=== PATIENT | male | born 1955 | race Caucasian/White ===

== ENCOUNTER 2020-09-07 09:01 | Day surgery (SDC) | payer MEDICARE, OTHER, SELFPAY ==
[2020-09-07 09:10] VITALS: BP 173/93; PULSE 93; RESP 20; TEMP 36.3; O2SAT 95
[2020-09-07] MEDS: Tropicam./Phenyleph. (1/2.5%) 5 ML BTL OD ×3 (09:43→09:51)
--- NOTE | 2020-09-07 10:55 | W.PM.DSUDISC ---
Discharge Plan Disposition Patient Disposition: HOME Condition: Good Discharge Details Reason For Visit: OD Attending Provider: Lang Lujan Primary Care Provider: Joseph Sue Home Meds and New Rx's Prescriptions: No Action glucagon (human recombinant) 1 mg Kit 1 mg IM ONCE RF: 0 carvedilol [Coreg] 25 mg Tablet 50 mg PO BID RF: 0 potassium chloride [Klor-Con 10] 10 mEq Tablet Extended Release 10 meq PO DAILY RF: 0 omeprazole 40 mg Capsule,Delayed Release(Dr/Ec) 40 mg PO DAILY RF: 0 nystatin 100,000 unit/gram Cream 1 applic TOPICAL BID PRN PRNRF: 0 lisinopril 30 mg Tablet 30 mg PO DAILY RF: 0 allopurinol 300 mg Tablet 300 mg PO DAILY RF: 0 hydralazine 50 mg Tablet 50 mg PO TID RF: 0 metformin 1,000 mg Tablet Extended Release 24hr 1,000 mg PO DAILY RF: 0 calcium carbonate-vitamin D3 [Calcium 500 + D] 500 mg(1,250mg) -200 unit Tablet 1 tab PO BID RF: 0 zolpidem 12.5 mg Tablet,Ext Release Multiphase 12.5 mg PO QHS PRNRF: 0 Victoza 2-[place] 0.6 mg/0.1 mL (18 mg/3 mL) Pen Injector 1.8 mg SUBCUT Q24H RF: 0 insulin glargine U-300 conc 300 unit/mL (1.5 mL) Insulin Pen 62 unit SUBCUT BID RF: 0 insulin degludec-liraglutide 100 unit-3.6 mg /mL (3 mL) Insulin Pen See Rx Instructions .ROUTE .COMPLEX RF: 0 simvastatin 20 mg Tablet 20 mg PO QPM RF: 0 Discharge Instructions Stand Alone Forms: Post-op Topical Cataract, Hank Wareey (DSU) Discharge Orders Discharge Orders: Discharge Order (Routine); Ordered 09/07/20 Ordered By: Lang Lujan DS: Diagnosis Discharge Diagnosis (1) Posterior subcapsular age-related cataract, right eye: Status: Resolved (2) Nuclear sclerotic cataract of right eye: Status: Resolved (3) Cortical cataract of right eye: Status: Resolved
[2020-09-07] MEDS: Lidocaine 2% Jelly 6 ML SYR (11:00)
[2020-09-07] MEDS: Tetracaine 0.5% 4 ML BTL OD (11:00)
[2020-09-07] MEDS: Lidocaine 1% Pres-Free 5 ML VIAL (11:05)
[2020-09-07] MEDS: Balanced Salt Soln.-PLUS 500 ML BAG (11:05)
[2020-09-07] MEDS: Povidone-Iodine Ophth 30 ML BTL (11:08)
[2020-09-07] MEDS: Moxifloxacin-PF 1 MG/ML VIAL (11:24)
--- NOTE | 2020-09-07 11:31 | W.PM.OP ---
Date of service: 09/07/20 Time of Service: 11:32 Operative Note Operative Note DATE OF PROCEDURE: 09/07/20 PRE-OP DIAGNOSIS: Nuclear/cortical/posterior subcapsular cataract, right eye POST-OP DIAGNOSIS: same PROCEDURE: Cataract extraction using phacoemulsification with intraocular lens implant, right eye SURGEON: Lang Lujan ANESTHESIA: MAC and local (sub-tenon's anesthetic infiltration) ESTIMATED BLOOD LOSS: 0 PATHOLOGY: none sent COMPLICATIONS: None Patient was transported to: same day Patient's condition: stable Implants: [employer] / [employer] Tecnis ZCB00 intraocular lens Indications: Progressive decreased vision due to cataract, right eye Procedure Description: CATARACT SURGERY OPERATIVE REPORT PREOPERATIVE DIAGNOSIS: Nuclear/cortical/posterior subcapsular cataract, right eye POSTOPERATIVE DIAGNOSIS: Same OPERATION: Cataract extraction using phacoemulsification with posterior chamber intraocular lens implant, right eye. IOL: IOL Customer Engagement Specialist/Model: [employer] Vision / AZAEL Tecnis ZCB00 IOL Power: + 19.0 diopters IOL Serial Number: [id number] Optic Diameter: 6.0mm Haptic/Overall Diameter: 13.0mm PHACO INFO: Ubaldo [employer] Vision System with OZil and Active Fluidics Cumulative Dispersed Energy (CDE): 5.99 seconds SURGEON: Lang Lujan MD, JOE ANESTHESIA: Monitored Anesthesia Care (MAC), with local sub-tenon's anesthetic infiltration COMPLICATIONS: None SPECIMENS: None INDICATIONS FOR PROCEDURE: The patient is a 65-year-old gentleman with history of diminished visual acuity in the right eyes secondary to the development of nuclear/cortical/posterior subcapsular cataract. The option of cataract surgery was offered to the patient and he felt he was symptomatic enough that he wished to proceed. PROCEDURE: The correct surgical eye was identified and marked as the right eye and the pupil was dilated in the preoperative area using mydriatics and cycloplegics. Dilated pupil size was 6.5 mm no sedation was given. The patient was brought to the operating room where cardiopulmonary monitoring was instituted and surgical time-out was performed, confirming the correct operative eye and IOL power. Topical anesthesia was administered and ophthalmic povidone-iodine 5% was instilled into the conjunctival fornices. Lidocaine gel was applied to the cornea and the severo-ocular area was prepped with Betadine 10% solution and draped in the usual sterile fashion for intraocular surgery, including an aperture drape. A Tegaderm transparent film dressing was cut in half and used to cover the lashes and lid margins. Care was taken to sequester the lashes and lid margins under the Tegaderm dressing. A lid speculum was placed between the lids of the operative eye and the Seymour-Leisa operating microscope was maneuvered into position. Catalino scissors were then used to make a conjunctival buttonhole approximately 6mm posterior to the limbus in the inferonasal quadrant. Blunt dissection was carried out to expose bare sclera, and a blunt-tipped sub-tenon?s anesthesia cannula was introduced and passed posteriorly along the globe where non-preserved plain lidocaine was injected into posterior sub-Tenon?s space. A sideport knife was used to make a paracentesis port inferiortemporally. Intraocular phenylephrine/lidocaine was injected into the anterior chamber. The anterior chamber was then filled with Healon Pro. A 2.4mm keratome knife was used to create a half-thickness groove at the limbus and then to construct a three-plane near-clear corneal tunnel extending 2.0mm into clear cornea in the superiortemporal position. . A flap was raised on the anterior capsule and capsulorhexis forceps were used to complete a continuous curvilinear capsulorhexis of 5.0 mm. Balanced salt solution was then used to perform cortical cleaving hydrodissection and nuclear hydrodelineation until the lens could be freely rotated within the capsular bag. The lens nucleus was then disassembled and removed within the capsular bag and iris plane using phacoemulsification. Residual cortical material was removed using the I/A handpiece. The posterior capsule was carefully polished to remove as much residual lens epithelial cells as safely possible. The capsular bag was then inflated and the anterior chamber deepened with viscoelastic. The lens implant described above was inserted into the capsular bag using the AZAEL [place] Injector. A Kuglen hook was used to dial the IOL into position. Residual viscoelastic was then removed first from posterior to the IOL, then from the anterior chamber using the I/A handpiece. The lens implant was noted to center nicely within the capsular bag. The incisions were stromally hydrated, and the anterior chamber was reformed using BSS. Then 0.5cc of moxifloxacin 1.0mg/ml were injected into the capsular bag and anterior chamber. The incisions were checked with a Weck spear and found to be secure. Several drops of ophthalmic povidone-iodine 5% were then applied to the eye followed by two drops of Imprimis combination prednisolone/moxifloxacin/nepafenac solution. The drapes were removed and a clear plastic protective eye shield was placed over the eye. The patient was then returned to [facility] in stable condition.
== END 2020-09-07 12:00 | disposition home or self-care (01) ==
PROVIDERS: PCP Internal Medicine; Visit Provider Ophthalmology
PROC: (CPT 66984; principal; 2020-09-07 12:30)
DX: H25.041 Posterior subcapsular polar age-related cataract, right eye (principal); I10 Essential (primary) hypertension; K21.9 Gastro-esophageal reflux disease without esophagitis; E11.9 Type 2 diabetes mellitus without complications
CPT/HCPCS: 66984; V2632

== ENCOUNTER 2020-09-21 06:43 | Day surgery (SDC) | payer MEDICARE, OTHER, SELFPAY ==
[2020-09-21 06:45] VITALS: BP 158/71; PULSE 73; RESP 16; TEMP 36.4; O2SAT 97
[2020-09-21] MEDS: Tropicam./Phenyleph. (1/2.5%) 5 ML BTL OS ×3 (07:07→07:26)
--- NOTE | 2020-09-21 08:10 | W.PM.DSUDISC ---
Discharge Plan Disposition Patient Disposition: HOME Condition: Good Discharge Details Attending Provider: Lang Lujan Primary Care Provider: Joseph Sue Home Meds and New Rx's Prescriptions: No Action glucagon (human recombinant) 1 mg Kit 1 mg IM ONCE RF: 0 carvedilol [Coreg] 25 mg Tablet 50 mg PO BID RF: 0 potassium chloride [Klor-Con 10] 10 mEq Tablet Extended Release 10 meq PO DAILY RF: 0 omeprazole 40 mg Capsule,Delayed Release(Dr/Ec) 40 mg PO DAILY RF: 0 nystatin 100,000 unit/gram Cream 1 applic TOPICAL BID PRN PRNRF: 0 lisinopril 30 mg Tablet 30 mg PO DAILY RF: 0 allopurinol 300 mg Tablet 300 mg PO DAILY RF: 0 hydralazine 50 mg Tablet 50 mg PO TID RF: 0 metformin 1,000 mg Tablet Extended Release 24hr 1,000 mg PO DAILY RF: 0 calcium carbonate-vitamin D3 [Calcium 500 + D] 500 mg(1,250mg) -200 unit Tablet 1 tab PO BID RF: 0 zolpidem 12.5 mg Tablet,Ext Release Multiphase 12.5 mg PO QHS PRNRF: 0 Victoza 2-[place] 0.6 mg/0.1 mL (18 mg/3 mL) Pen Injector 1.8 mg SUBCUT Q24H RF: 0 insulin glargine U-300 conc 300 unit/mL (1.5 mL) Insulin Pen 62 unit SUBCUT BID RF: 0 insulin degludec-liraglutide 100 unit-3.6 mg /mL (3 mL) Insulin Pen See Rx Instructions .ROUTE .COMPLEX RF: 0 simvastatin 20 mg Tablet 20 mg PO QPM RF: 0 Discharge Instructions Stand Alone Forms: Post-op Topical Cataract, Press Ganey (DSU) Discharge Orders Discharge Orders: Discharge Order (Routine); Ordered 09/21/20 Ordered By: Lang Lujan DS: Diagnosis Discharge Diagnosis (1) Posterior subcapsular age-related cataract of left eye: Status: Resolved (2) Nuclear sclerotic cataract of left eye: Status: Resolved (3) Cortical cataract of left eye: Status: Resolved
[2020-09-21] MEDS: Tetracaine 0.5% 4 ML BTL OS (08:26)
[2020-09-21] MEDS: Balanced Salt Soln.-PLUS 500 ML BAG (08:26)
[2020-09-21] MEDS: Lidocaine 1% Pres-Free 5 ML VIAL (08:27)
[2020-09-21] MEDS: Moxifloxacin-PF 1 MG/ML VIAL (08:28)
[2020-09-21] MEDS: Lidocaine 2% Jelly 6 ML SYR (08:28)
[2020-09-21] MEDS: Povidone-Iodine Ophth 30 ML BTL (08:29)
[2020-09-21] MEDS: Duovisc Viscoelastic System EACH 1 EACH (08:30)
--- NOTE | 2020-09-21 08:50 | ROE_ITS ---
Date of service: 09/21/20 Time of Service: 08:51 Operative Note Operative Note DATE OF PROCEDURE: 09/21/20 PRE-OP DIAGNOSIS: Nuclear/cortical/posterior subcapsular cataract, left eye POST-OP DIAGNOSIS: same PROCEDURE: Cataract extraction using phacoemulsification with intraocular lens implant, left eye SURGEON: Lang Lujan ANESTHESIA: MAC and local (sub-tenon's anesthetic infiltration) PATHOLOGY: none sent COMPLICATIONS: None Patient was transported to: same day Patient's condition: stable Implants: [employer] / [employer] Tecnis ZCB00 Indications: Progressive decreased vision due to cataract, left eye Procedure Description: CATARACT SURGERY OPERATIVE REPORT PREOPERATIVE DIAGNOSIS: Nuclear/cortical/posterior subcapsular cataract, left eye POSTOPERATIVE DIAGNOSIS: Same OPERATION: Cataract extraction using phacoemulsification with posterior chamber intraocular lens implant, left eye. IOL: IOL News Technical Director/Model: J[employer]J Vision / AZAEL Tecnis ZCB00 IOL Power: +19.5 diopters IOL Serial Number: [id number] Optic Diameter: 6.0mm Haptic/Overall Diameter: 13.0mm PHACO INFO: Ubaldo [employer] Vision System with OZil and Active Fluidics Cumulative Dispersed Energy (CDE): 2.86 seconds SURGEON: Lang Lujan MD, JOE ANESTHESIA: Monitored Anesthesia Care (MAC), with local sub-tenon's anesthetic infiltration COMPLICATIONS: None SPECIMENS: None INDICATIONS FOR PROCEDURE: The patient is a 65-year-old gentleman with history of diminished visual acuity in his left eye secondary to development of nuclear/cortical/posterior subcapsular cataract. The option of cataract surgery was offered to the patient and he wished to proceed. He has already undergone cataract surgery in the right eye and is doing well postoperatively. PROCEDURE: The correct surgical eye was identified and marked as the left eye and the pupil was dilated in the preoperative area using mydriatics and cycloplegics. The dilated pupil size was 8.0 mm. Oral sedation was administered in the form of an Imprimis MKO Melt (midazolam 3mg/ketamine 25mg/ondansetron 2mg). The patient was brought to the operating room where cardiopulmonary monitoring was instituted and surgical time-out was performed, confirming the correct operative eye and IOL power. Topical anesthesia was administered and ophthalmic povidone-iodine 5% was instilled into the conjunctival fornices. Lidocaine gel was applied to the cornea and the severo-ocular area was prepped with Betadine 10% solution and draped in the usual sterile fashion for intraocular surgery, including an aperture drape. A Tegaderm transparent film dressing was cut in half and used to cover the lashes and lid margins. Care was taken to sequester the lashes and lid margins under the Tegaderm dressing. A lid speculum was placed between the lids of the operative eye and the Seymour-Leisa operating microscope was maneuvered into position. Catalino scissors were then used to make a conjunctival buttonhole approximately 6mm posterior to the limbus in the inferonasal quadrant. Blunt dissection was carried out to expose bare sclera, and a blunt-tipped sub-tenon?s anesthesia cannula was introduced and passed posteriorly along the globe where non- preserved plain lidocaine was injected into posterior sub-Tenon?s space. A sideport knife was used to make a paracentesis port superior/superiortemporally. Intraocular phenylephrine/lidocaine was injected into the anterior chamber. The anterior chamber was then filled with Viscoat. A 2.4mm keratome knife was used to create a half-thickness groove at the limbus and then to construct a three- plane near-clear corneal tunnel extending 2.0mm into clear cornea in the temporal position. . A flap was raised on the anterior capsule and capsulorhexis forceps were used to complete a continuous curvilinear capsulorhexis of 5.0 mm. Balanced salt solution was then used to perform cortical cleaving hydrodissection and nuclear hydrodelineation until the lens could be freely rotated within the capsular bag. The lens nucleus was then disassembled and removed within the capsular bag and iris plane using phacoemulsification. Residual cortical material was removed using the 45-degree angled silicone I/A tip with 0.3mm port. The posterior capsule was carefully polished to remove as much residual lens epithelial cells as safely possible. The capsular bag was then inflated and the anterior chamber deepened with viscoelastic. The lens implant described above was inserted into the capsular bag using the AZAEL [place] Injector. A Kuglen hook was used to dial the IOL into position. Residual viscoelastic was then removed first from posterior to the IOL, then from the anterior chamber using the I/A handpiece. The lens implant was noted to center nicely within the capsular bag. The incisions were stromally hydrated, and the anterior chamber was reformed using BSS. Then 0.5cc of moxifloxacin 1.0mg/ml were injected into the capsular bag and anterior chamber. The incisions were checked with a Weck spear and found to be secure. Several drops of ophthalmic povidone-iodine 5% were then applied to the eye followed by two drops of Imprimis combination prednisolone/moxifloxacin/nepafenac solution. The drapes were removed and a clear plastic protective eye shield was placed over the eye. The patient was then returned to Same Day Surgery in stable condition.
== END 2020-09-21 09:15 | disposition home or self-care (01) ==
PROVIDERS: PCP Internal Medicine; Visit Provider Ophthalmology
PROC: (CPT 66984; principal; 2020-09-21 08:30)
DX: H25.042 Posterior subcapsular polar age-related cataract, left eye (principal); I10 Essential (primary) hypertension; E11.9 Type 2 diabetes mellitus without complications
CPT/HCPCS: 66984; V2632